=== PATIENT | male | born 1960 | race Caucasian/White ===

== ENCOUNTER → 2020-08-24 08:54 | Outpatient (CLI) | payer OTHER, SELFPAY ==
[2020-08-24 11:11] LABS: Coronavirus 19 IgG Antibody Negative (Negative); Coronavirus 19 IgM Antibody Negative (Negative)
== END ==
PROVIDERS: Visit Provider Ophthalmology
DX: Z01.812 Encounter for preprocedural laboratory examination (principal); Z11.52 Encounter for screening for COVID-19; H25.12 Age-related nuclear cataract, left eye
CPT/HCPCS: 36415; 86328

== ENCOUNTER 2020-08-25 09:18 | Day surgery (SDC) | payer OTHER, SELFPAY ==
[2020-08-19 08:44] VITALS: BMI 21.7
[2020-08-25] VITALS (7 sets, daily range): BP systolic 119–130; BP diastolic 77–92; PULSE 60–85; RESP 18–20; TEMP 36.6–36.7; O2SAT 96–100
== END 2020-08-25 12:00 | disposition home or self-care (01) ==
LOC: OR 09:21
PROVIDERS: Visit Provider Ophthalmology
PROC: (CPT 66984; principal; 2020-08-25 11:30)
DX: H25.812 Combined forms of age-related cataract, left eye (principal)
CPT/HCPCS: 66984; V2632